=== PATIENT | female | born 1985 | race Caucasian/White ===

== ENCOUNTER 2019-05-12 13:14 | Emergency (ER) | payer SELFPAY ==
[~2019-05-12] VITALS: Ht 149.8 cm; Wt 65.0 kg
--- NOTE | 2019-05-12 13:38 | ED General ---
General Stated Complaint: COLD/FLU SYMPTOMS Source of Information: Patient Exam Limitations: No Limitations History of Present Illness Date Seen by Provider: May 12, 2019 Time Seen by Provider: 13:35 Initial Comments To ER with cough runny nose sore throat and nasal congestion for 3-4 days. Exposed to a "clients" at work who have pneumonia. Her children are ill with similar symptoms. Timing/Duration: 3-4 Days Severity: Moderate Associated Systoms: Cough, Fever/Chills Allergies and Home Medications Allergies Coded Allergies: hydrocodone (Verified Allergy, Unknown, 05/12/19) morphine (Verified Allergy, Unknown, 05/12/19) Home Medications D-Methorphan Hb/P-Epd HCl/Bpm 118 Ml Syrup, 5 ML PO Q4H PRN for CONGESTION Prescribed by: ANA DICKERSON on 05/12/19 1350 Oseltamivir Phosphate 75 Mg Cap, 75 MG PO BID Prescribed by: ANA DICKERSON on 05/12/19 1410 Patient Home Medication List Home Medication List Reviewed: Yes Review of Systems Review of Systems Constitutional: see HPI EENTM: see HPI Respiratory: see HPI, cough Cardiovascular: no symptoms reported Genitourinary: no symptoms reported Musculoskeletal: no symptoms reported Skin: no symptoms reported Psychiatric/Neurological: No Symptoms Reported Hematologic/Lymphatic: No Symptoms Reported Immunological/Allergic: no symptoms reported Past Muylqlr-Iemywk-Ngwmpq Hx Patient Social History Recent Foreign Travel: No Contact w/Someone Who Travel: No Physical Exam Vital Signs Vital Signs - First Documented 05/12/19 13:24 Temp 37.7 Pulse 108 Resp 20 B/P (MAP) 115/65 (82) Pulse Ox 96 O2 Delivery Room Air Capillary Refill : Height, Weight, BMI Height: '" Weight: lbs. oz. kg; BMI Method: General Appearance: No Apparent Distress, WD/WN Eyes: Bilateral Eye Normal Inspection, Bilateral Eye PERRL, Bilateral Eye EOMI HEENT: PERRL/EOMI, TMs Normal Neck: Full Range of Motion, Normal Inspection Respiratory: No Accessory Muscle Use, No Respiratory Distress Cardiovascular: Regular Rate, Rhythm, Normal Peripheral Pulses Gastrointestinal: Normal Bowel Sounds, Non Tender, Soft Extremity: Normal Capillary Refill, Normal Inspection Neurologic/Psychiatric: Alert, Oriented x3 Skin: Normal Color, Warm/Dry Progress/Results/Core Measures Suspected Sepsis SIRS Temperature: Pulse: Respiratory Rate: Blood Pressure / Mean: Results/Orders Micro Results Microbiology 1/26/20 Influenza Types A,B Antigen (TATIANA) - Final, Complete My Orders Orders - ANA DICKERSON APRN Chest Pa/Lat (2 View) (05/12/19 13:34) Vital Signs/I&O 05/12/19 13:24 Temp 37.7 Pulse 108 Resp 20 B/P (MAP) 115/65 (82) Pulse Ox 96 O2 Delivery Room Air Capillary Refill : Departure Impression Primary Impression: Influenza Disposition: HOME, SELF-CARE Condition: Stable Departure-Patient Inst. Decision time for Depature: 13:36 Referrals: NO,LOCAL PHYSICIAN (PCP/Family) Primary Care Physician Patient Instructions: Flu Add. Discharge Instructions: 1. Tylenol and ibuprofen for pain or fever control. Stay hydrated by drinking plenty of fluids. Return to ER for any concerns. Follow-up with your doctor next week for recheck. Scripts Oseltamivir Phosphate (Tamiflu) 75 Mg Cap 75 MG PO BID, #10 CAP Prov: ANA DICKERSON APRN 05/12/19 D-Methorphan Hb/P-Epd HCl/Bpm (Bromfed Dm Cough Syrup) 118 Ml Syrup 5 ML PO Q4H PRN for CONGESTION for 7 Days, #120 ML Prov: ANA DICKERSON APRN 05/12/19 Work/School Note: Work Release Form Date Seen in the Emergency Department: May 12, 2019 Return to Work: May 15, 2019 ANA DICKERSON APRN May 12, 2019 13:38
[2019-05-12] MEDS ORDERED: D-ME118S33 PO (13:50)
--- NOTE | 2019-05-12 14:06 | Diagnostic Imaging Report ---
EXAMINATION: PA and lateral chest at 2:00 p.m. INDICATION: Cough COMPARISON: There are no prior studies available for comparison. FINDINGS: The heart size is within normal limits. There is a small nodular density in the left lung base an a thin band of increased density just inferior and medial to this on the PA view. I suspect these findings are related to mild pneumonia/atelectasis. It would be unlikely that this nodular density is neoplastic in nature. This density could even be related to the left nipple. Even so, a follow-up chest exam would be recommended to assure that the left lung base clears completely. The lungs are otherwise clear. The mediastinum is not widened. The osseous structures are intact. IMPRESSION: The small nodular and linear density in the left lung base are most likely due to mild pneumonia/atelectasis. Considerations and recommendations as above. Dictated by: Dictated on workstation # [id number]
[2019-05-12] MEDS ORDERED: OSLT75C PO (14:10)
[2019-05-12 14:50] VITALS: BP 115/65
== END 2019-05-12 14:50 | disposition home or self-care (01) ==
LOC: ER 13:15
DX: J11.1 Influenza due to unidentified influenza virus with other respiratory manifestations (principal); Z88.5 Allergy status to narcotic agent
CPT/HCPCS: 71046; 87804

== ENCOUNTER 2019-10-13 13:12 | Emergency (ER) | payer SELFPAY ==
[~2019-10-13] VITALS: Ht 157 cm; Wt 65.7 kg
[~2019-10-13 13:12] MED LIST: D-ME118S33 PO; OSLT75C PO
--- OUTSIDE RECORDS SUMMARY | 2019-10-13 13:17 | XMS REPORT | Continuity of Care Document ---
Author Organization Unknown Address Unknown Phone Unavailable Allergies Active Description Code Type Severity Reaction Onset Reported/Identified Relationship to Patient Clinical Status Yes hydrocodone [id number] Drug Aller gy Unknown N/A 05/12/2019 Yes morphine [id number] Drug Allergy Unknown N/A 05/12/2019 Medications There is no data. Problems Date Dx Coded Attending Type Code Diagnosis Diagnosed By 05/14/2019 ANA DICKERSON APRN Ot J11 .1 FLU DUE TO UNIDENTIFIED INFLUENZA VIRUS 05/14/2019 ANA DICKERSON APRN Ot R05 COUGH 05/14/2019 ANA DICKERSON APRN Ot Z88 .5 ALLERGY STATUS TO NARCOTIC AGENT STATUS Procedures There is no data. Results Test Result Range Influenza virus A and B antigen detectio n - 05/12/19 13:32 CALL POSITIVES (F1 HELP) [facility] FLU RESULT POSITIVE FOR INFLUENZA B ANT IGEN, NEG FOR A ANTIGEN, BY IA NRG Encounters ACCT No. Visit Date/Time Discharge Status Pt. Type Provider Facility Loc./Unit Complaint [id number] 05/12/2019 13:15:00 020 14:50:00 DIS Outpatient ANA DICKERSON APRN [facility] ER COLD/FLU SYMPTOMS [id number] 10/13/2019 13:13:[address] Emergency JONNIE KIDD, JOSE LUIS Harley Via [facility] ER 5 WKS PREG/BLEEDING/CRAMPS
[2019-10-13 13:39] LABS: BASOPHILS % (AUTO) 1 % (0-10); EOSINOPHILS # (AUTO) 0.4 10^3/uL (0.0-0.3); EOSINOPHILS % (AUTO) 6 % (0-10); HEMATOCRIT 39 % (35-52); HEMOGLOBIN 13.2 G/DL (11.5-16.0); LYMPHOCYTES # (AUTO) 1.6 X 10^3 (1.0-4.0); LYMPHOCYTES % (AUTO) 27 % (12-44); MEAN CORPUSCULAR HEMOGLOBIN 31 PG (25-34); MEAN CORPUSCULAR HGB CONC 34 G/DL (32-36); MEAN CORPUSCULAR VOLUME 91 FL (80-99); MEAN PLATELET VOLUME 9.1 FL (7.4-10.4); MONOCYTES # (AUTO) 0.4 X 10^3 (0.0-1.0); MONOCYTES % (AUTO) 7 % (0-12); NEUTROPHILS # (AUTO) 3.5 X 10^3 (1.8-7.8); NEUTROPHILS % (AUTO) 59 % (42-75); PLATELET COUNT 343 10^3/uL (130-400); RED CELL DISTRIBUTION WIDTH 13.1 % (10.0-14.5)
[2019-10-13 13:49] LABS: BILIRUBIN,URINE NEGATIVE (NEGATIVE); CLARITY,URINE CLEAR; COLOR,URINE YELLOW; GLUCOSE, URINE (UA) NEGATIVE (NEGATIVE); KETONES,URINE 1+ (NEGATIVE); LEUKOCYTE ESTERASE ,URINE TRACE (NEGATIVE); NITRITE,URINE NEGATIVE (NEGATIVE); PROTEIN,URINE NEGATIVE (NEGATIVE)
[2019-10-13 13:55] LABS: BACTERIA,URINE TRACE /HPF; WBC,URINE 0-2 /HPF
--- NOTE | 2019-10-13 14:08 | ED GU-Female ---
General Chief Complaint: Female Reproductive Stated Complaint: 5 WKS PREG/BLEEDING/CRAMPS Nursing Triage Note: patient states within last hour started cramping and bleeding bright red vaginal blood Nursing Sepsis Screen: No Definite Risk History of Present Illness Date Seen by Provider: Oct 13, 2019 Time Seen by Provider: 13:30 Initial Comments 34-year-old female presents for vaginal spotting she is approximately 5 weeks gestation. Her LMP was September 05, 2019. Symptoms began at 0300 this morning with just trace amount of red blood and abdominal cramping. At noon she had increased bright red blood. She had a + HCG on 10/11/19. She started Vitamins 2 days ago. She denies intercourse, for approximately 4 weeks. She went to [facility] in [place] and had normal ultrasound with sack in the uterus and heart beat noted. She has not established with an AUTOMOTIVE WINDOW TINTER. Timing/Duration: this morning Severity/Quality: mild Location: suprapubic Radiation: none Associated Symptoms: denies symptoms; No lower back pain, No nausea/vomiting, No urinary frequency Allergies and Home Medications Allergies Coded Allergies: hydrocodone (Verified Allergy, Unknown, 05/12/19) morphine (Verified Allergy, Unknown, 05/12/19) Home Medications D-Methorphan Hb/P-Epd HCl/Bpm 118 Ml Syrup, 5 ML PO Q4H PRN for CONGESTION Prescribed by: ANA DICKERSON on 05/12/19 1350 Oseltamivir Phosphate 75 Mg Cap, 75 MG PO BID Prescribed by: ANA DICKERSON on 05/12/19 1410 Patient Home Medication List Home Medication List Reviewed: Yes Review of Systems Review of Systems Constitutional: no symptoms reported, see HPI Genitourinary: see HPI, discharge (vaginal bleeding) All Other Systemes Reviewed Negative Unless Noted: Yes Past Ibunsul-Kulbqk-Hzfwbg Hx Past Med/Social Hx: Reviewed Nursing Past Med/Soc Hx Patient Social History Alcohol Use: Denies Use Recreational Drug Use: No Type Used: Cigarettes 2nd Hand Smoke Exposure: Yes Recent Foreign Travel: No Contact w/Someone Who Travel: No Recent Infectious Disease Expo: No Recent Hopitalizations: No Physical Abuse: No Sexual Abuse: No Mistreated: No Fear: No Immunizations Up To Date Tetanus Booster (TDap): Unknown PED Vaccines UTD: Yes Seasonal Allergies Seasonal Allergies: No Past Medical History Surgeries: Yes (D&C) Adenoidectomy Respiratory: No Cardiac: No Neurological: No Genitourinary: No Gastrointestinal: No Musculoskeletal: No Endocrine: No HEENT: No Cancer: No Psychosocial: No Integumentary: No Blood Disorders: No Physical Exam Vital Signs Vital Signs - First Documented 10/13/19 13:24 Temp 36.4 Pulse 88 Resp 18 B/P (MAP) 118/85 (96) Pulse Ox 96 O2 Delivery Room Air Capillary Refill : Less Than 3 Seconds Height, Weight, BMI Height: '" Weight: lbs. oz. kg; 26.00 BMI Method: General Appearance: WD/WN, no apparent distress, other (tearful) HEENT: PERRL/EOMI, normal ENT inspection, TMs normal, pharynx normal Neck: non-tender, full range of motion, supple, normal inspection Cardiovascular: normal peripheral pulses, regular rate, rhythm Respiratory: chest non-tender, lungs clear, normal breath sounds Gastrointestinal: normal bowel sounds, non tender, soft; No rebound, No tenderness Neurologic/Psychiatric: no motor/sensory deficits, alert, normal mood/affect, oriented x 3 Skin: normal color, warm/dry Progress/Results/Core Measures Suspected Sepsis Recent Fever Within 48 Hours: No Infection Criteria Present: None New/Unexplained Altered Menta: No Sepsis Screen: No Definite Risk SIRS Temperature: Pulse: 88 Respiratory Rate: 18 Laboratory Tests 10/13/19 13:30: White Blood Count 6.0 Blood Pressure 118 /85 Mean: 96 Laboratory Tests 10/13/19 13:30: Platelet Count 343 10/13/19 13:50: Creatinine 0.71, Total Bilirubin 0.4 Results/Orders Lab Results Laboratory Tests Test 10/13/19 13:30 10/13/19 13:50 Range/Units White Blood Count 6.0 4.3-11.0 10^3/uL Red Blood Count 4.26 L 4.35-5.85 10^6/uL Hemoglobin 13.2 11.5-16.0 G/DL Hematocrit 39 35-52 % Mean Corpuscular Volume 91 80-99 FL Mean Corpuscular Hemoglobin 31 25-34 PG Mean Corpuscular Hemoglobin Concent 34 32-36 G/DL Red Cell Distribution Width 13.1 10.0-14.5 % Platelet Count 343 130-400 10^3/uL Mean Platelet Volume 9.1 7.4-10.4 FL Neutrophils (%) (Auto) 59 42-75 % Lymphocytes (%) (Auto) 27 12-44 % Monocytes (%) (Auto) 7 0-12 % Eosinophils (%) (Auto) 6 0-10 % Basophils (%) (Auto) 1 0-10 % Neutrophils # (Auto) 3.5 1.8-7.8 X 10^3 Lymphocytes # (Auto) 1.6 1.0-4.0 X 10^3 Monocytes # (Auto) 0.4 0.0-1.0 X 10^3 Eosinophils # (Auto) 0.4 H 0.0-0.3 10^3/uL Basophils # (Auto) 0.0 0.0-0.1 10^3/uL Urine Color YELLOW Urine Clarity CLEAR Urine pH 6.0 5-9 Urine Specific [place] >=1.030 1.016-1.022 Urine Protein NEGATIVE NEGATIVE Urine Glucose (UA) NEGATIVE NEGATIVE Urine Ketones 1+ H NEGATIVE Urine Nitrite NEGATIVE NEGATIVE Urine Bilirubin NEGATIVE NEGATIVE Urine Urobilinogen 0.2 < = 1.0 MG/DL Urine Leukocyte Esterase TRACE H NEGATIVE Urine RBC (Auto) 3+ H NEGATIVE Urine RBC NONE /HPF Urine WBC 0-2 /HPF Urine Squamous Epithelial Cells 5-10 /HPF Urine Crystals NONE /LPF Urine Bacteria TRACE /HPF Urine Casts NONE /LPF Urine Mucus SMALL H /LPF Urine Culture Indicated NO Urine Test POSITIVE NEGATIVE Sodium Level 136 135-145 MMOL/L Potassium Level 3.7 3.6-5.0 MMOL/L Chloride Level 105 98-107 MMOL/L Carbon Dioxide Level 21 21-32 MMOL/L Anion Gap 10 5-14 MMOL/L Blood Urea Nitrogen 6 L 7-18 MG/DL Creatinine 0.71 0.60-1.30 MG/DL Estimat Glomerular Filtration Rate > 60 BUN/Creatinine Ratio 8 Glucose Level 96 70-105 MG/DL Calcium Level 9.3 8.5-10.1 MG/DL Corrected Calcium 9.1 8.5-10.1 MG/DL Total Bilirubin 0.4 0.1-1.0 MG/DL Aspartate Amino Transf (AST/SGOT) 21 5-34 U/L Alanine Aminotransferase (ALT/SGPT) 24 0-55 U/L Alkaline Phosphatase 52 40-136 U/L Total Protein 7.1 6.4-8.2 GM/DL Albumin 4.3 3.2-4.5 GM/DL Human Chorionic Gonadotropin, Quant 117 H <5 MIU/ML My Orders Orders - SARAH FLORES Ua Culture If Indicated (10/13/19 13:20) Cbc With Automated Diff (10/13/19 13:25) Comprehensive Metabolic Panel (10/13/19 13:25) Hcg,Quantitative (10/13/19 13:25) Abo Rh Type (10/13/19 13:25) Hcg,Qualitative Urine (10/13/19 13:37) Vital Signs/I&O 10/13/19 10/13/19 13:24 14:53 Temp 36.4 Pulse 88 76 Resp 18 16 B/P (MAP) 118/85 (96) 124/95 Pulse Ox 96 98 O2 Delivery Room Air Room Air Capillary Refill : Less Than 3 Seconds Blood Pressure Mean: 96 Progress Note : Time: 13:30 Progress Note Patient seen and evaluated, will obtain labs and reevaluate. Explained that ultrasound services are not available here today. 1430 Labs all WNL, no further spotting. Discharge instructions and return precautions reviewed with her. Departure Impression Primary Impression: Miscarriage, threatened, early Disposition: 01 HOME, SELF-CARE Condition: Stable Departure-Patient Inst. Decision time for Depature: 14:30 Referrals: [facility] STACY,LOCAL PHYSICIAN (PCP) Primary Care Physician Patient Instructions: Threatened Miscarriage (DC), Bleeding With (DC) Add. Discharge Instructions: Increase rest. Continue to take your Vitamin Call [facility], to set up appt with an AUTOMOTIVE WINDOW TINTER, Dr. Ruelas or Deep. Monitor pad counts. Increase water intake. Take Tylenol 650 mg orally every 6-8 hours for pain/cramping. Return to the Emergency Dept for new, urgent health care needs. All discharge instructions reviewed with patient and/or family. Voiced understanding. Copy Copies To 1: LAURYN HEREIDA MD; IDALIA RUELAS MD, AMY ARNP Oct 13, 2019 14:08
[2019-10-13 14:09] LABS: ALBUMIN 4.3 GM/DL (3.2-4.5); CHLORIDE 105 MMOL/L (98-107); POTASSIUM 3.7 MMOL/L (3.6-5.0); SODIUM 136 MMOL/L (135-145)
[2019-10-13 14:10] LABS: CALCIUM 9.3 MG/DL (8.5-10.1)
[2019-10-13 14:11] LABS: GLUCOSE 96 MG/DL (70-105)
[2019-10-13 14:12] LABS: TOTAL PROTEIN 7.1 GM/DL (6.4-8.2)
[2019-10-13 14:13] LABS: BILIRUBIN,TOTAL 0.4 MG/DL (0.1-1.0); CARBON DIOXIDE 21 MMOL/L (21-32)
[2019-10-13 14:15] LABS: ALKALINE PHOSPHATASE 52 U/L (40-136); CREATININE SERUM 0.71 MG/DL (0.60-1.30); GFR ESTIMATED > 60
[2019-10-13 14:16] LABS: BUN/CREATININE RATIO 8
[2019-10-13 14:18] LABS: ALANINE AMINOTRANSFERASE 24 U/L (0-55)
[2019-10-13 14:53] VITALS: BP 124/95
== END 2019-10-13 14:55 | disposition home or self-care (01) ==
LOC: EDUNIT# 13:12 → ER 13:13
DX: O20.0 Threatened abortion (principal); Z3A.01 Less than 8 weeks gestation of pregnancy; Z88.5 Allergy status to narcotic agent; Z77.22 Contact with and (suspected) exposure to environmental tobacco smoke (acute) (chronic)
CPT/HCPCS: 36415; 80053; 81000; 84702; 84703; 85025; 86900; 86901; 99282

== ENCOUNTER 2019-10-13 21:25 | Emergency (ER) | payer SELFPAY ==
[~2019-10-13] VITALS: Ht 154 cm; Wt 63.0 kg
--- OUTSIDE RECORDS SUMMARY | 2019-10-13 21:30 | XMS REPORT | Continuity of Care Document ---
Author Organization Unknown Address Unknown Phone Unavailable Allergies Active Description Code Type Severity Reaction Onset Reported/Identified Relationship to Patient Clinical Status Yes hydrocodone [id number] Drug Aller gy Unknown N/A 05/12/2019 Yes morphine [id number] Drug Allergy Unknown N/A 05/12/2019 Medications There [...] - 05/12/19 13:32 CALL POSITIVES (F1 HELP) [facility] FLU RESULT POSITIVE FOR INFLUENZA B ANT IGEN, NEG FOR A ANTIGEN, BY IA NRG Encounters ACCT No. Visit Date/Time Discharge Status Pt. Type Provider Facility Loc./Unit Complaint [id number] 10/13/2019 13:13:00 020 14:55:00 DIS Emergency SARAH FLORES Via [facility] ER 5 WKS PREG/BLEEDING/[employer] MPS [id number] 05/12/2019 13:15:00 020 14:50:00 DIS Outpatient ANA DICKERSON APRN Via [facility] ER COLD/FLU SYMPTOMS [id number] 10/13/2019 21:26:[address] Emergency VICTORIANO COMBS DO Via [facility] ER POSS MISCARRIAGE/CRAMPS
[2019-10-13] MEDS ORDERED: APAP 300 MG/CODEINE 30 MG (TYLENOL #3) TAB PO ONE (21:45)
--- NOTE | 2019-10-13 21:56 | ED GU-Female ---
General Chief Complaint: Abdominal/GI Problems Stated Complaint: POSS MISCARRIAGE/CRAMPS Nursing Triage Note: patient verbalized still spotting. states changed 1 pad today. patient states rt groin/abd pain. Nursing Sepsis Screen: No Definite Risk History of Present Illness Date Seen by Provider: Oct 13, 2019 Time Seen by Provider: 21:30 Initial Comments 34 year old female 5 weeks gestation, minimal vaginal bleeding but increased right groin pain. She tool Tylenol mid afternoon and 500 mg at 2030 with no relief in her pain. Understands that we do not have Ultrasound capabilities here. Severity/Quality: moderate Location: RLQ Radiation: none Associated Symptoms: abdominal pain; No fever/chills, No nausea/vomiting Allergies and Home Medications Allergies Coded Allergies: hydrocodone (Verified Allergy, Unknown, 05/12/19) morphine (Verified Allergy, Unknown, 05/12/19) Home Medications D-Methorphan Hb/P-Epd HCl/Bpm 118 Ml Syrup, 5 ML PO Q4H PRN for CONGESTION Prescribed by: ANA DICKERSON on 05/12/19 1350 Oseltamivir Phosphate 75 Mg Cap, 75 MG PO BID Prescribed by: ANA DICKERSON on 05/12/19 1410 Patient Home Medication List Home Medication List Reviewed: Yes Review of Systems Review of Systems Constitutional: no symptoms reported, see HPI Gastrointestinal: see HPI, abdominal pain (RLQ) Genitourinary: see HPI : Yes LMP: September 05, 2019 All Other Systemes Reviewed Negative Unless Noted: Yes Past Fvsavlg-Dzjpuv-Gmoptd Hx Past Med/Social Hx: Reviewed Nursing Past Med/Soc Hx Patient Social History Alcohol Use: Denies Use Recreational Drug Use: No Type Used: Cigarettes 2nd Hand Smoke Exposure: Yes Recent Foreign Travel: No Contact w/Someone Who Travel: No Recent Infectious Disease Expo: No Recent Hopitalizations: No Immunizations Up To Date Tetanus Booster (TDap): Unknown PED Vaccines UTD: Yes Seasonal Allergies Seasonal Allergies: No Past Medical History Surgeries: Yes (D&C) Adenoidectomy Respiratory: No Cardiac: No Neurological: No Genitourinary: No Gastrointestinal: No Musculoskeletal: No Endocrine: No HEENT: No Cancer: No Psychosocial: No Integumentary: No Blood Disorders: No Physical Exam Vital Signs Vital Signs - First Documented 10/13/19 21:37 Temp 36.9 Pulse 132 Resp 18 B/P (MAP) 141/99 (113) Pulse Ox 97 O2 Delivery Room Air Capillary Refill : Less Than 3 Seconds Height, Weight, BMI Height: '" Weight: lbs. oz. kg; 26.00 BMI Method: General Appearance: WD/WN, mild distress Cardiovascular: normal peripheral pulses, regular rate, rhythm, tachycardia Gastrointestinal: normal bowel sounds, soft; No rebound; tenderness (right lower quadrant) Neurologic/Psychiatric: no motor/sensory deficits, alert, normal mood/affect, oriented x 3 Progress/Results/Core Measures Suspected Sepsis Recent Fever Within 48 Hours: No Infection Criteria Present: None New/Unexplained Altered Menta: No Sepsis Screen: No Definite Risk SIRS Temperature: Pulse: 132 Respiratory Rate: 18 Blood Pressure 141 /99 Mean: 113 Results/Orders My Orders Orders - SARAH FLORES Acetaminophen/Codeine Tablet (Tylenol W/ (10/13/19 21:45) Medications Given in ED Current Medications Medications Dose Ordered Sig/Jf Route Start Time Stop Time Status Last Admin Dose Admin Acetaminophen/ Codeine Phosphate 1 tab ONCE ONCE PO 10/13/19 21:45 10/13/19 21:46 DC 10/13/19 21:55 1 TAB Vital Signs/I&O 10/13/19 21:37 Temp 36.9 Pulse 132 Resp 18 B/P (MAP) 141/99 (113) Pulse Ox 97 O2 Delivery Room Air Capillary Refill : Less Than 3 Seconds Blood Pressure Mean: 113 Progress Note : Time: 21:30 Progress Note Patient assessed, discussed the option of transfer to a facility with ultrasound capabilities. Patient agreed with this. Her sister can drive her, to [email or web address]. She will go to [facility], report called to ER and records from both visits send with her. Tylenol #3 for pain. Report called to [facility], records from both visits given to patient. Departure Impression Primary Impression: Abdominal wall pain Additional Impression: Threatened miscarriage Disposition: 01 HOME, SELF-CARE Condition: Improved Departure-Patient Inst. Decision time for Depature: 21:55 Referrals: NO,LOCAL PHYSICIAN (PCP/Family) Primary Care Physician Patient Instructions: Acute Abdomen (Belly Pain), Adult (DC), Threatened Miscarriage (DC) Add. Discharge Instructions: Go Directly to [facility] ER for evaluation, take your records. Do not eat or drink anything, until evaluated. Return to this Emergency Dept for new, urgent health care needs. All discharge instructions reviewed with patient and/or family. Voiced understanding. SARAH FLORES Oct 13, 2019 21:55
[2019-10-13 22:03] VITALS: BP 141/99
== END 2019-10-13 22:04 | disposition home or self-care (01) ==
LOC: EDUNIT# 21:25 → ER 21:26
DX: O26.891 Other specified pregnancy related conditions, first trimester (principal); R10.31 Right lower quadrant pain; O20.0 Threatened abortion; Z3A.01 Less than 8 weeks gestation of pregnancy
CPT/HCPCS: 99283

== ENCOUNTER 2020-09-02 00:12 | Emergency (ER) | payer MEDICAID ==
[~2020-09-02] VITALS: Ht 149.8 cm; Wt 66.2 kg
[2020-09-02] MEDS ORDERED: NS IV 1000 ML 1,000 ML ONE (00:35)
[2020-09-02] MEDS ORDERED: ONDANSETRON 4 MG/2 ML (SDV) Z0FRAN ONE (00:35)
--- NOTE | 2020-09-02 00:48 | ED Abdominal Pain ---
General Chief Complaint: Abdominal/GI Problems Stated Complaint: VOMITING FOR 3 HRS Source of Information: Patient Exam Limitations: No Limitations History of Present Illness Date Seen by Provider: September 02, 2020 Time Seen by Provider: 00:25 Initial Comments Patient is a 35-year-old female who presents to the emergency department today with a chief complaint of abdominal pain nausea and vomiting. Patient states that she woke up vomiting this morning about 4 hours ago and states that she is vomited numerous times. She denies any diarrhea. Patient states that she had some Taco Archuleta as did her sister who also had a little stomach upset afterwards. Patient denies any fevers or chills. She states that she gets a significant amount of anxiety when she has nausea and vomiting and that is why she came to the emergency department. She denies any other complaints of illness or injury no other GI or complaints. Patient states that she believes her abdomen is hurting secondary to the vomiting. She has only had previous D&C no other abdominal surgeries. All other review of systems reviewed and negative except as stated above. Timing/Duration: 4-6 Hours Severity/Quality: Moderate, Aching, Cramping Location: Generalized Abdomen Radiation: No Radiation Activities at Onset: None Associated Symptoms: Denies Symptoms Allergies and Home Medications Allergies Coded Allergies: hydrocodone (Verified Allergy, Unknown, 05/12/19) morphine (Verified Allergy, Unknown, 05/12/19) Home Medications D-Methorphan Hb/P-Epd HCl/Bpm 118 Ml Syrup, 5 ML PO Q4H PRN for CONGESTION Prescribed by: ANA DICKERSON on 05/12/19 1350 Oseltamivir Phosphate 75 Mg Cap, 75 MG PO BID Prescribed by: ANA DICKERSON on 05/12/19 1410 Patient Home Medication List Home Medication List Reviewed: Yes Review of Systems Review of Systems Constitutional: see HPI EENTM: No Symptoms Reported Respiratory: No Symptoms Reported Cardiovascular: Palpitations Gastrointestinal: Abdominal Pain; Denies Diarrhea; Nausea, Vomiting Genitourinary: No Symptoms Reported Musculoskeletal: no symptoms reported Skin: no symptoms reported Psychiatric/Neurological: Anxiety All Other Systems Reviewed Negative Unless Noted: Yes Past [id number] Hx Patient Social History Type Used: Cigarettes 2nd Hand Smoke Exposure: Yes Recent Hopitalizations: No Immunizations Up To Date Tetanus Booster (TDap): Unknown PED Vaccines UTD: Yes Seasonal Allergies Seasonal Allergies: No Past Medical History Surgeries: Yes (D&C) Adenoidectomy Respiratory: No Cardiac: No Neurological: No Genitourinary: No Gastrointestinal: No Musculoskeletal: No Endocrine: No HEENT: No Cancer: No Psychosocial: No Integumentary: No Blood Disorders: No Physical Exam Vital Signs Vital Signs - First Documented 09/02/20 00:31 Temp 36.5 Pulse 131 Resp 18 B/P (MAP) 137/98 (111) Pulse Ox 97 Capillary Refill : Height/Weight/BMI Height: '" Weight: lbs. oz. kg; 26.00 BMI Method: General Appearance: WD/WN, mild distress HEENT: PERRL/EOMI Respiratory: lungs clear, normal breath sounds, no respiratory distress Cardiovascular: regular rate, rhythm, tachycardia Gastrointestinal: soft, abnormal bowel sounds (Hypoactive), tenderness (Diffuse abdominal tenderness) Extremities: normal range of motion, non-tender, normal inspection, no pedal edema Neurologic/Psychiatric: no motor/sensory deficits, alert, normal mood/affect, oriented x 3 Skin: normal color, warm/dry Progress/Results/Core Measures Results/Orders Lab Results Laboratory Tests Test 09/02/20 00:40 Range/Units Sodium Level 143 135-145 MMOL/L Potassium Level 3.7 3.6-5.0 MMOL/L Chloride Level 104 98-107 MMOL/L Carbon Dioxide Level 23 21-32 MMOL/L Anion Gap 16 H 5-14 MMOL/L Blood Urea Nitrogen 6 L 7-18 MG/DL Creatinine 0.87 0.60-1.30 MG/DL Estimat Glomerular Filtration Rate > 60 BUN/Creatinine Ratio 7 Glucose Level 108 H 70-105 MG/DL Calcium Level 9.9 8.5-10.1 MG/DL My Orders Orders - FREEMAN MCLAUGHLIN MD Ns Iv 1000 Ml (Sodium Chloride 0.9%) (09/02/20 00:35) Ondansetron Injection (Zofran Injectio (09/02/20 00:35) Ed Iv/Invasive Line Start (09/02/20 00:51) Ns Iv 1000 Ml (Sodium Chloride 0.9%) (09/02/20 01:00) Ondansetron Injection (Zofran Injectio (09/02/20 01:00) Basic Metabolic Panel (09/02/20 00:51) Lorazepam Injection (Ativan Injection) (09/02/20 01:45) Medications Given in ED Current Medications Medications Dose Ordered Sig/Jf Route Start Time Stop Time Status Last Admin Dose Admin Lorazepam 0.5 mg ONCE ONCE IVP 09/02/20 01:45 09/02/20 01:46 DC 09/02/20 02:04 0.5 MG Ondansetron HCl 4 mg STK-MED ONCE .ROUTE 09/02/20 00:35 09/02/20 00:46 DC 09/02/20 00:49 8 MG Sodium Chloride 1,000 ml @ ud STK-MED ONCE .ROUTE 09/02/20 00:35 09/02/20 00:46 DC 09/02/20 00:49 1,000 MLS/HR Vital Signs/I&O 09/02/20 00:31 Temp 36.5 Pulse 131 Resp 18 B/P (MAP) 137/98 (111) Pulse Ox 97 Departure Impression Primary Impression: Nausea and vomiting Qualified Codes: R11.2 - Nausea with vomiting, unspecified Disposition: HOME, SELF-CARE Condition: Stable Departure-Patient Inst. Decision time for Depature: 02:19 Referrals: [facility]/DAVID KUMAR,LOCAL PHYSICIAN (PCP) Primary Care Physician Patient Instructions: Nausea and Vomiting, Adult Add. Discharge Instructions: Use the Zofran every 8 hours as needed for nausea and vomiting. Take Tylenol as needed for abdominal cramping and pain. Follow-up with [facility]. Return to the emergency room for any worsening pain, vomiting, fever or other emergent concerning symptoms. Scripts Ondansetron (Ondansetron Odt) 4 Mg Tab.rapdis 4 MG PO Q8H PRN for nausea, #10 TAB Prov: FREEMAN MCLAUGHLIN MD 09/02/20 FREEMAN MCLAUGHLIN MD September 02, 2020 00:48
[2020-09-02 00:58] LABS: CHLORIDE 104 MMOL/L (98-107); POTASSIUM 3.7 MMOL/L (3.6-5.0); SODIUM 143 MMOL/L (135-145)
[2020-09-02 01:00] LABS: CALCIUM 9.9 MG/DL (8.5-10.1); GLUCOSE 108 MG/DL (70-105)
[2020-09-02] MEDS ORDERED: ONDANSETRON 4 MG/2 ML (SDV) Z0FRAN IVP ONE (01:00)
[2020-09-02] MEDS ORDERED: NS IV 1000 ML 1,000 ML IV SCH (01:00)
[2020-09-02 01:01] LABS: CARBON DIOXIDE 23 MMOL/L (21-32)
[2020-09-02 01:04] LABS: CREATININE SERUM 0.87 MG/DL (0.60-1.30); GFR ESTIMATED > 60
[2020-09-02 01:05] LABS: BUN/CREATININE RATIO 7
[2020-09-02] MEDS ORDERED: LORazepam INJ 2 MG/ML (ATIVAN) VIAL IVP ONE (01:45)
[2020-09-02] MEDS ORDERED: RX-ONDANSETRON 4 MG ODT (ZOFRAN) PPK #4 PO STA (02:20)
[2020-09-02] MEDS ORDERED: ONDA4TAB11 PO (02:20)
[2020-09-02 02:34] VITALS: BP 116/85
== END 2020-09-02 02:34 | disposition home or self-care (01) ==
LOC: EDUNIT# 00:12 → ER 00:15
DX: R11.2 Nausea with vomiting, unspecified (principal); R10.84 Generalized abdominal pain; Z77.22 Contact with and (suspected) exposure to environmental tobacco smoke (acute) (chronic); Z88.5 Allergy status to narcotic agent
CPT/HCPCS: 36415; 80048